=== PATIENT | male | born 1945 | race Caucasian/White ===

== ENCOUNTER 2017-02-10 06:49 | Inpatient (IN) | payer MEDICARE, OTHER ==
[~2017-02-10 06:49] MED LIST: BAYER CHEWABLE81 MG PO; GLUCOPHAGE1000 MG PO; LANTUS INSULIN10 ML SC; LIPITOR10 MG PO; LISINOPRIL10 MG PO; LYRICA50 MG PO; PLAVIX75 MG PO
[2017-02-10 07:56] LABS: BASOPHILS 0.1 % (0-2); EOSINOPHILS 0.1 % (0-7); HEMATOCRIT 36.6 % (42.0-54.0); HEMOGLOBIN 12.3 g/dL (13.5-17.5); IMMATURE GRANULOCYTES 0.3 % (0-5); LYMPHOCYTES 8.7 % (15-50); MCH 30.1 pg (26.0-34.0); MCHC 33.6 g/dL (31.0-37.0); MCV 89.7 fL (80.0-100.0); MEAN PLATELET VOLUME 9.3 fL (7.4-10.4); MONOCYTES 4.3 % (2-11); NEUTROPHILS 86.5 % (40-80); PLATELET COUNT 388 10x3/uL (130-400); RBC 4.08 10x6/uL (4.20-6.10); WBC 14.8 10x3/uL (4.8-10.8)
[2017-02-10 08:03] LABS: ALBUMIN 3.4 g/dL (3.4-5.0); ANION GAP 13.5 mmol/L (8-16); BILIRUBIN - TOTAL 0.19 mg/dL (0.2-1.3); CALCIUM 9.5 mg/dL (8.5-10.1); CARBON DIOXIDE 26.9 mmol/L (21.0-32.0); CREATININE - SERUM 2.1 mg/dL (0.6-1.3); POTASSIUM - SERUM 5.4 mmol/L (3.5-5.1); PROTEIN - SERUM 7.8 g/dL (6.4-8.2)
[2017-02-10] MEDS ORDERED: BUMEX 1 MG TAB1 MG PO (10:25)
[2017-02-10] MEDS ORDERED: NEURONTIN 300300 MG PO (10:26)
[2017-02-10] MEDS ORDERED: CAPOTEN12.5 MG PO (10:27)
[2017-02-10] MEDS ORDERED: COZAAR25 MG PO (10:27)
[2017-02-10] MEDS ORDERED: COLACE100 MG PO (10:28)
[2017-02-10 10:34] LABS: APTT 25.7 SECONDS (22.8-39.4)
[2017-02-10] MEDS ORDERED: NOVOLOG100 U/M1 SC (10:34)
[2017-02-10 10:35] VITALS: BP 152/66; BMI 34.5
[2017-02-10 10:39] LABS: INR 1.03 (0.85-1.17); PROTIME 13.3 SECONDS (11.6-15.0)
--- NOTE | 2017-02-10 10:53 | NUR ---
PT AOX4 RESP EVEN AND NONLABORED PT DENIES NEEDS AT THIS TIME IV TO LEFT HAND PATENT AND INTACT AT THIS TIME SRX2 BED AT LOWEST SETTING CALL LIGHT WITHIN REACH WILL CONTINUE TO MONITOR
--- NOTE | 2017-02-10 12:28 | NUR ---
ANGLIN INSERTED USING STERILE TECHNIQUE
[2017-02-10 13:18] LABS: COLOR YELLOW (YELLOW)
[2017-02-10 13:19] LABS: APPEARANCE HAZY (CLEAR); BILIRUBIN NEGATIVE (NEGATIVE); GLUCOSE 1000 mg/dL (NEGATIVE); KETONE NEGATIVE (NEGATIVE); NITRITE NEGATIVE (NEGATIVE); PROTEIN 1+ mg/dL (NEGATIVE); RED CELLS - URINE 0-5 /hpf (0-5); UROBILINOGEN NORMAL (NORMAL)
[2017-02-10 13:21] LABS: BACTERIA FEW /hpf (NONE SEEN); EPITHELIAL CELLS RARE /hpf (0-5)
[2017-02-10 15:34] VITALS: BP 152/80
--- NOTE | 2017-02-10 17:19 | NUR ---
RESPIRATORY THERAPY CONSULT PER DR. MUNROE. SPO2 92% HR 101 BREATH SOUND CLEAR/DIMINISHED. INSTRUCTED PATIENT REGARDING THE INCENTIVE SPIROMETRY IN WHICH PATIENT ACHEIVED 1000ML X10. ADVICED PATIENT THAT AFTER SURGERY HE WOULD NEED TO DO EVERY FEW HOUR X10.
[2017-02-10 20:00] VITALS: BP 125/57
--- NOTE | 2017-02-10 20:00 | NUR ---
PT AWAKE, AOX4. FAMILY AT BEDSIDE. DENIES ANY NEEDS AT THIS TIME. HAND FRAME SURGICAL ELASTIC KNITTER IN USE FOR PAIN CONTROL. CALL LIGHT IN REACH.
--- NOTE | 2017-02-10 21:38 | NUR ---
REC'D LYING IN BED. ALERT AND OREINTED X4. REPORTED PAIN 5/10. HAS ELECTROMEDICAL EQUIPMENT TECHNICIAN. INSTRUCTED HIM ON THE USE. DENIED NEEDS AT THIS TIME. IS NPO FOR PROCEDURE IN THE AM. IS AT BEDSIDE. INSTRUCTED TO CALL IF NEEDED ANYTHING. BED LOW LOCKED, CALL LIGHT IN REACH.
[2017-02-11] VITALS (14 sets, daily range): BP systolic 125–177; BP diastolic 57–81
--- NOTE | 2017-02-11 05:08 | NUR ---
IV TO LEFT HAND WAS BLEEDING, PUT A J-LOOP ON IV STILL PATENT AND FLUSHED HAD BLOOD RETURN. INSTRUMENT AND ELECTRICAL TECHNICIAN TUBING WAS HOOKED UP WRONG. HOOKED UP THE RIGHT WAY.
[2017-02-11 05:15] LABS: HEMATOCRIT 35.8 % (42.0-54.0); HEMOGLOBIN 11.7 g/dL (13.5-17.5); MCH 30.1 pg (26.0-34.0); MCHC 32.7 g/dL (31.0-37.0); MEAN PLATELET VOLUME 9.2 fL (7.4-10.4); RBC 3.89 10x6/uL (4.20-6.10); RDW 13.5 % (11.5-14.5)
[2017-02-11 05:37] LABS: WBC 19.1 10x3/uL (4.8-10.8)
[2017-02-11 05:57] LABS: ALBUMIN 2.9 g/dL (3.4-5.0); ANION GAP 15.9 mmol/L (8-16); BILIRUBIN - DIRECT 0.15 mg/dL (0.00-0.30); BILIRUBIN - INDIRECT 0.41 mg/dL (0.00-1.00); BILIRUBIN - TOTAL 0.56 mg/dL (0.2-1.3); CALCIUM 8.1 mg/dL (8.5-10.1); CARBON DIOXIDE 22.6 mmol/L (21.0-32.0); CREATININE - SERUM 1.9 mg/dL (0.6-1.3); MAGNESIUM - SERUM 1.7 mg/dL (1.8-2.4); POTASSIUM - SERUM 5.5 mmol/L (3.5-5.1); PROTEIN - SERUM 7.2 g/dL (6.4-8.2)
--- NOTE | 2017-02-11 07:30 | NUR ---
PT IS IN SURGERY.
--- NOTE | 2017-02-11 09:20 | NUR ---
ANESTHESIA ADVISES THE PATIENT WAS 94% O2 SAT PRE OPERATIVE
--- NOTE | 2017-02-11 09:32 | NUR ---
DR BAUTISTA ADVISED OF THE BP AND ORDERED HYDRALIZINE
--- NOTE | 2017-02-11 12:05 | NUR ---
PT WAS RECEIVED FROM RECOVERY. HE IS AWAKE AND ALERT. VSS. PT IS 94 % ON 4 LITERS O2 VIA NC. HE HAS 3 SMALL LAPAROSCOPIC INCISIONS NOTED WITH STERI STRIPS. CLEAN AND DRY. SCD'S INITIATED. IV LEFT HAND PATENT .
--- NOTE | 2017-02-11 12:09 | NUR ---
PT REQUEST TO SIT UP ON SIDE OF BED. HE HAS TOLERATED THIS WELL. HIS O2 WAS REDUCED TO 2 LITERS VIA NC. AM MEDS GIVEN. HE WAS ALSO GIVEN NORCO FOR PAIN. SCD'S OFF WHILE SITTING UP.
--- NOTE | 2017-02-11 12:19 | NUR ---
PT IS SITTING UP ON SIDE OF BED. HIS BS IS 144.
--- NOTE | 2017-02-11 15:00 | NUR ---
PT IS SITTING UP ON SIDE OF BED. HE OFFERS NO COMPLAINTS. BED IS LOW, SIDE RAILS UP X 2 AND CALL LIGHT IN REACH.
--- NOTE | 2017-02-11 17:20 | NUR ---
PT IS SITTING UP ON SIDE OF BED. HE OFFERS NO COMPLAINTS. HE WOULD LIKE HIS CATHETER OUT THOUGH. BS 188. GIVEN HUMULIN R 8 UNITS R THIGH
--- NOTE | 2017-02-11 18:38 | NUR ---
PT REQUESTED PAIN MED. PAIN IS A 7. NORCO GIVEN.
--- NOTE | 2017-02-11 18:41 | NUR ---
RECEIVED BENTYL FROM PHARMACY. GIVEN TO PT.
--- NOTE | 2017-02-11 19:58 | NUR ---
RECIEVED SITTING UP ON THE SIDE OF THE BED AND MANY FAMILY AT BEDSIDE. PLEASANT AND COOPERATIVE. ALERT AND ORIENTED X4. PLEASANT AND COOPERATIVE. AT BEDSIDE. STATED ABD. PAIN MUCH BETTER.
[2017-02-12] VITALS: BP 152/65
[2017-02-12 00:17] VITALS: BP 155/65
[2017-02-12 04:13] VITALS: BP 146/58
[2017-02-12 06:34] LABS: BASOPHILS 0.1 % (0-2); EOSINOPHILS 0.1 % (0-7); HEMATOCRIT 34.1 % (42.0-54.0); HEMOGLOBIN 11.1 g/dL (13.5-17.5); IMMATURE GRANULOCYTES 0.4 % (0-5); MCH 29.6 pg (26.0-34.0); MCHC 32.6 g/dL (31.0-37.0); MCV 90.9 fL (80.0-100.0); MEAN PLATELET VOLUME 9.2 fL (7.4-10.4); MONOCYTES 8.3 % (2-11); NEUTROPHILS 83.1 % (40-80); PLATELET COUNT 349 10x3/uL (130-400); RBC 3.75 10x6/uL (4.20-6.10); RDW 13.5 % (11.5-14.5); WBC 17.9 10x3/uL (4.8-10.8)
[2017-02-12 06:58] LABS: ANION GAP 15.9 mmol/L (8-16); CALCIUM 8.7 mg/dL (8.5-10.1); CARBON DIOXIDE 19.9 mmol/L (21.0-32.0); CREATININE - SERUM 1.8 mg/dL (0.6-1.3); MAGNESIUM - SERUM 1.9 mg/dL (1.8-2.4); POTASSIUM - SERUM 4.8 mmol/L (3.5-5.1)
[2017-02-12 08:00] VITALS: BP 159/63
[2017-02-12] MEDS ORDERED: HYDROCODON-ACE1 EAC7 PO (08:25)
[2017-02-12] MEDS ORDERED: LEVAQUIN500 MG PO (08:25)
--- NOTE | 2017-02-12 10:37 | NUR ---
CM REASSESSMENT NOTE: PATIENT IS DISCHARGING HOME TODAY. PATIENT STATED HE HAD NO NEEDS AND REFUSED HOME HEALTH. WILL BE DRIVING HIM HOME.
--- NOTE | 2017-02-12 10:45 | NUR ---
IV D/C'D FOR DISCHARGE, BLEED CONTROL, BANDAGE APPLIED.
--- NOTE | 2017-02-12 11:00 | NUR ---
ANGLIN CATHETER D/C'D AT THIS TIME, PT TOLERATED WITH MINIMAL DISCOMFORT.
--- NOTE | 2017-02-12 14:02 | NUR ---
DISCHARGE INSTRUCTIONS GIVEN TO PT, VERBALIZED UNDERSTANDING AND SIGNED.
--- NOTE | 2017-02-12 14:20 | NUR ---
PT DISCHARGED FROM FLOOR WITH FAMILY VIA WHEELCHAIR, TRANSPORTED BY HOSPITAL STAFF. PERSONAL BELONGINGS WITH PT.
== END 2017-02-12 14:26 | disposition home or self-care (01) | DRG 418 ==
LOC: OBSVTIME → D.OPS 06:49 → D.ER 06:49 → D.MS 09:37 → D.ER 09:37 → OBSVTIME 09:37 → EDSTATUS 02-11 11:30 → D.MS 02-11 13:20
PROVIDERS: Emergency Medicine; ADMIT Surgery
PROC: 0FT44ZZ Resection of Gallbladder, Percutaneous Endoscopic Approach (ICD-10-PCS; principal; 2017-02-11 08:00)
DX: K81.0 Acute cholecystitis (principal); N17.9 Acute kidney failure, unspecified; E11.9 Type 2 diabetes mellitus without complications; Z79.4 Long term (current) use of insulin; I10 Essential (primary) hypertension; I73.9 Peripheral vascular disease, unspecified; E87.5 Hyperkalemia

== ENCOUNTER → 2017-06-03 06:14 | Outpatient (CLI) | payer MEDICARE, OTHER ==
[~2017-06-03] VITALS: Ht 170.2 cm; Wt 98.6 kg
--- NOTE | ~2017-06-03 | HEMODYNAMI ---
PATIENT:BESSIE MITCHELL BUBBA MEDICAL RECORD: [id number] : 45 LOCATION:[facility] ADMISSION DATE: 06/03/17 Generatedon:06/03/201711:14 Patient name: BESSIE MITCHELL Patient #: [id number] SSN: : 1945 Date of study: 06/03/2017 Page: Of Hemodynamic Procedure Report Patient Data Patient Demographics Procedure consent was obtained First Name: BESSIE Gender: Male Last Name: STEPHEN : 1945 [facility] Initial: BUBBA Age: 71 year(s) Patient #: [id number] Race: Unknown Additional ID: [id number] Contact details [address]: [address] [place] [address] State: [place] City: [place] Zip code: [address] Past Medical History Allergies Allergen Reaction Date Comments Reported Other allergy 06/03/2017 glipizide Admission Admission Data Admission Date: 06/03/2017 Admission Time: 6:14 Admit Source: Other Lab Results Lab Result Date: 06/03/2017 Lab Result Time: 0:00 Biochemistry Name Units Result Min Max BUN mg/dl 34 --(----)-* 7 18 Creatinine mg/dl 2.5 --(----)-* 0.6 1.3 CBC Name Units Result Min Max Hemoglobin g/dl 12.2 *-(----)-- 13.5 17.5 Procedure Procedure Types Cath Procedure Diagnostic Procedure [facility] w/Coronaries PCI Procedure Coronary Stent Coronary Stent Initial Miscellaneous Procedures Moderate Sedation up to 15 minutes Procedure Description Procedure Date Procedure Date: 06/03/2017 Procedure Start Time: 10:46 Procedure End Time: 11:14 Procedure Staff Name Function Ruben Graves MD Performing Physician Willow Falcon RT Monitor Julio Bland RT Scrub Freddy Pham RN Nurse Procedure Data Cath Procedure Fluoroscopy Diagnostic fluoroscopy Total fluoroscopy Time: 7.6 time: 7.6 min min Diagnostic fluoroscopy Total fluoroscopy dose: 938 dose: 938 mGy mGy Contrast Material Contrast Material Type Amount (ml) Isovue 300 86 Entry Location Entry Primary Successful Side Size Upsize Upsize Entry Closure Succes sful Closure Location (Fr) 1 (Fr) 2 (Fr) Remarks Device Remarks Femoral Right 5 Fr 6 Fr Exoseal artery Short Estimated blood loss: 10 ml Diagnostic catheters Device Type Used For End Catheter Placement MULTIPACK JL 4.0 5Fr Procedure catheter MULTIPACK 3DRC 5Fr Procedure catheter Procedure Complications No complications Procedure Medications Medication Administration Route Dosage 0.9% NaCl I.V. 100 ml/hr Oxygen NC 2 l/min Heparin Flush Bag added to field 2 bags (1000units/500ml NS) Lidocaine 2% added to field 20 Versed I.V. 1 mg Fentanyl I.V. 50 mcg Benadryl I.V. 50 mg Versed I.V. 0.5 mg Heparin Bolus I.V. 9900 units Fentanyl I.V. 50 mcg Versed I.V. 0.5 mg Plavix P.O. 600 mg Hemodynamics Rest Pre Cath Intra NCS Post Cath Vital Signs Time Heart Resp SPO2 etCO2 NIBP (mmHg) Rhythm Pain Sedation Rate (ipm) (%) (mmHg) Status Level (bpm) 10:40:35 69 20 99 0 149/88(118) NSR 0 (11) 10(A) , No pain 10:45:18 70 13 86 0 126/69(96) NSR 0 (11) 10(A) , No pain 10:49:52 71 15 95 0 140/79(114) NSR 0 (11) 10(A) , No pain 10:54:33 67 15 83 0.7 130/65(109) NSR 0 (11) 9(A) , No pain 10:59:05 71 14 95 1.5 133/74(111) NSR 0 (11) 9(A) , No pain 11:03:43 71 18 96 19.7 129/63(103) NSR 0 (11) 10(A) , No pain 11:08:24 74 13 91 9.8 118/60(93) NSR 0 (11) 10(A) , No pain 11:13:29 73 18 96 14.4 125/69(108) NSR 0 (11) 10(A) , No pain Medications Time Medication Route Dose Verified Delivered Reason Notes Effectiveness by by 10:39:04 0.9% NaCl I.V. 100 Freddy Freddy Per physician ml/hr Vero Pham RN RN 10:39:13 Oxygen NC 2 Freddy Freddy Per physician l/min Vero Pham RN RN 10:39:25 Heparin Flush added 2 Freddy Freddy used for Bag to bags Vero Pham procedure (1000units/500ml RN RN NS) 10:39:37 Lidocaine 2% added 20ml Freddy Freddy for local to vial Lornagi Pham anesthetic RN RN 10:45:26 Versed I.V. 1 mg Freddy Freddy for sedation Vero Pham RN RN 10:45:35 Fentanyl I.V. 50 Freddy Freddy for sedation mcg Vero Pham RN RN 10:45:47 Benadryl I.V. 50 mg Freddy Freddy Per physician Vero Pham RN RN 10:48:48 Versed I.V. 0.5 Freddy Freddy for sedation mg Vero Pham RN RN 10:58:14 Heparin Bolus I.V. 9,900 Freddy Freddy for units Vero Pham anticoagulation RN RN 11:02:02 Fentanyl I.V. 50 Freddy Freddy for sedation mcg Vero Pham RN RN 11:03:44 Versed I.V. 0.5 Freddy Freddy for sedation mg Vero Pham RN RN 11:12:19 Plavix P.O. 600 Freddy Freddy for mg Vero Pham antiplatelet RN RN therapy Procedure Log Time Note 10:10:03 Freddy Pham RN sent for patient. Start room use. 10:25:42 Informed consent obtained and on chart 10:25:45 Admit Source: Other 10:26:02 Diagnostic Cath status Elective 10:26:09 Time tracking: Regular hours 10:26:13 Plan of Care:Hemodynamics will remain stable., Cardiac rhythm will remain stable., Comfort level will be maintained., Respiratory function will remain adequate., Patient/ family verbilizes understanding of procedure., Procedure tolerated without complication., Recovers from procedure without complications.. 10:26:18 Patient received from Pre/Post Procedure Room to CCL 1 Alert and oriented. Tansferred to table in Supine position. 10:26:22 Warm blankets applied, and roxana hugger turned on for patient comfort. 10:26:23 Correct patient and procedure confirmed by team. 10:26:23 ECG and BP/O2 sat monitors applied to patient. 10:26:48 H&P Date Dictated: 05/28/2017 Within 30 days and on chart., H&P Addendum completed by physician on day of procedure. (MUST COMPLETE FOR ALL OUTPATIENTS). 10:26:49 Pre-procedure instructions explained to patient. 10:26:49 Pre-op teaching completed and patient verbalized understanding. 10:26:53 Family in waiting room. 10:26:58 Patient NPO since Midnight. 10:27:18 Patient allergic to Other allergyglipizide 10:27:20 Is the patient allergic to Iodine/contrast media? No. 10:37:52 Is patient on blood thinner?No 10:37:54 Patient diabetic? Yes. 10:37:56 If diabetic: On Metformin? No 10:38:00 Snore? Yes 10:38:01 Sleep apnea? No 10:38:08 Dentures? Yes in tight 10:38:22 IV patent on arrival in left forearm with 0.9% NaCl at [facility]. 10:39:04 0.9% NaCl 100 ml/hr I.V. was administered by Freddy Pham RN; Per physician; 10:39:13 Oxygen 2 l/min NC was administered by Freddy Pham RN; Per physician; 10:39:25 Heparin Flush Bag (1000units/500ml NS) 2 bags added to field was administered by Freddy Pham RN; used for procedure; 10:39:37 Lidocaine 2% 20ml vial added to field was administered by Freddy Pham RN; for local anesthetic; 10:39:45 Vital chart was started 10:43:15 Lab Result : BUN 34 mg/dl 10:43:15 Lab Result : Hemoglobin 12.2 g/dl 10:43:15 Lab Result : Creatinine 2.5 mg/dl 10:43:35 Right groin area was prepped with chlora-prep and draped in sterile fashion 10:43:36 Alarms reviewed by R. N. 10:43:36 Sharps counted by scrub and verified by R.N. 10:43:37 Physician paged 10:43:38 Physician arrived 10:43:39 --------ALL STOP TIME OUT------ 10:43:40 Final Timeout: patient, procedure, and site verified with staff and physician. All members of the team are in agreement. 10:43:42 Right groin site verified by team. 10:43:46 Physical assessment completed. ASA score P 2 - A patient with mild systemic disease as per Ruben Graves MD. 10:43:50 Sedation plan: IV Moderate Sedation Medication:Versed, Fentanyl 10:43:54 Use device set Femoral Dx 10:43:55 ACIST Syringe (61171) opened to sterile field. 10:43:56 Bag Decanter (2002S) opened to sterile field. 10:43:56 Medline Cath Pack ([id number]) opened to sterile field. 10:43:57 SHEATH 5FR [place] (FAP292) opened to sterile field. 10:43:57 DIAGNOSTIC WIRE .035 260cm J wire (224684) opened to sterile field. 10:43:59 ACIST Hand Control (97278) opened to sterile field. 10:43:59 ACIST Manifold (44850) opened to sterile field. 10:43:59 DIAGNOSTIC Multipack 5Fr catheter set (CZ2101) opened to sterile field. 10:44:00 Tegaderm 4 x 4 (1626W) opened to sterile field. 10:44:00 PERCUTANEOUS ENTRY 19GA needle opened to sterile field. 10:45:19 Zero performed for pressure channel P1 10:45:26 Versed 1 mg I.V. was administered by Freddy Pham RN; for sedation; 10:45:35 Fentanyl 50 mcg I.V. was administered by Freddy Pham RN; for sedation; 10:45:47 Benadryl 50 mg I.V. was administered by Freddy Pham RN; Per physician; 10:46:35 Procedure started. 10:46:35 Full Disclosure recording started 10:46:53 Local anesthetic to right femoral artery with Lidocaine 2% by Ruben Graves MD.INITIAL ACCESS ONLY 10:47:56 A 5 Fr sheath was inserted into the Right Femoral artery 10:48:42 A MULTIPACK JL 4.0 5Fr catheter was advanced over the wire and used for Procedure. 10:48:48 Versed 0.5 mg I.V. was administered by Freddy Pham RN; for sedation; 10:49:42 LCA angiography performed. 10:51:50 Catheter removed. 10:52:04 A MULTIPACK 3DRC 5Fr catheter was advanced over the wire and used for Procedure. 10:52:15 RCA angiography performed. 10:52:43 Catheter removed. 10:54:47 INFLATOR Merit BasixCompak (WE6212) opened to sterile field. 10:54:48 TUBING High Pressure Extension Tubing (Graves) ([id number]) opened to sterile field. 10:54:48 SHEATH 6FR [place] (ICR971) opened to sterile field. 10:55:02 Proceeding to intervention. 10:55:26 BMW 300cm [place] 2 J wire ([id number]) opened to sterile field. 10:55:40 Procedure type changed to Cath procedure, Diagnostic procedure, LHC, LHC w/Coronaries, PCI procedure, Coronary Stent, Coronary Stent Initial, Miscellaneous Procedures, Moderate Sedation up to 15 minutes 10:55:51 Sheath upsized to a 6 Fr Short. 10:56:29 GUIDE 6FR XBLAD 3.5 SH catheter ([id number]) opened to sterile field. 10:56:45 6 Fr xblad 3.5 guide catheter was inserted over the wire 10:56:51 bmw wire advanced. 10:58:14 Heparin Bolus 9,900 units I.V. was administered by Freddy Pham RN; for anticoagulation; 11:02:02 Fentanyl 50 mcg I.V. was administered by Freddy Pham RN; for sedation; 11:03:44 Versed 0.5 mg I.V. was administered by Freddy Pham RN; for sedation; 11:07:39 Inflation Number: 1 A INTEGRITY OTW 3.0 X 12 stent ([id number]) was prepped and advanced across the Prox CX. The stent was deployed at 14 TABATHA for 0:18 (min:sec). 11:07:56 EXOSEAL 6Fr (EX600) opened to sterile field. 11:08:04 Wire removed. 11:08:05 Guide catheter removed. 11:08:15 Sheath removed intact; hemostasis achieved with Exoseal to the Right Femoral artery. 11:08:19 Procedure ended.(Physican Out) 11:08:36 Fluoroscopy time 07.60 minutes. 11:08:42 Fluoroscopy dose: 938 mGy 11:08:42 Flurop Dose total: 938 11:08:50 Contrast amount:Isovue 300 86ml. 11:09:03 Sharps counted by scrub and verified by R.N. 11:09:04 Insertion/operative site no bleeding no hematoma. 11:09:07 Post-op/insertion site Right Femoral artery dressed using a 4 x 4 and Tegaderm. 11:09:08 Post Procedure Pulses reassessed and unchanged 11:09:14 Post-procedure physical assessment completed. ASA score P 2 - A patient with mild systemic disease as per Ruben Graves MD. 11:09:18 Estimated blood loss: 10 ml 11:09:21 Post procedure instruction explained to patient.Patient verbalizes understanding. 11:12:03 Procedure and supply charges have been captured, reviewed, submitted and are correct. 11:12:19 Plavix 600 mg P.O. was administered by Freddy Pham RN; for antiplatelet therapy; 11:14:07 Procedure Complication : No complications 11:14:10 Vital chart was stopped 11:14:10 See physician's report for complete and final results. 11:14:12 Report given to Pre/Post Procedure Room. 11:14:16 Patient transfered to Pre/Post Procedure Room with Stretcher. 11:14:18 Procedure ended. 11:14:18 Full Disclosure recording stopped 11:14:25 ACC-PCI Only Patient was given prescriptions, or instructed by Ruben Graves MD to start/continue the following medications upon discharge: Plavix 11:14:28 End room use (Document Last) Intervention Summary Intervention Notes Time ActionType Lesion and Equipment Action# Pressure Duration Attributes Used 11:07:39 Place stent Prox CX INTEGRITY 1 14 00:18 OTW 3.0 X 12 stent ([id number]) Device Usage Item Name Manufacture Quantity Catalog Hospital Part Current Minimal Lot# / Number Charge Number Stock Stock Serial# Code ACIST Acist 1 59837 879307 577135 173963 20 Syringe Medical (10820) Systems Inc Bag Decanter Microtek 1 384164 87246 962521 5 () Medical Inc. Medline Cath Cardinal 1 [id number] 823845 32519 602741 5 Wabi Sabi Ecofashionconcept Health ([id number]) SHEATH 5FR Terumo 1 RUF383 404232 916870 089931 40 [place] (ITJ798) DIAGNOSTIC St Abhijeet 1 013854 930069 017149 178872 30 WIRE .035 260cm J wire (378766) ACIST Hand Acist 1 49033 246275 547522 009903 5 Control Medical (81433) Systems Inc ACIST Acist 1 34406 648755 685236 971286 5 Manifold Medical (57399) Systems Inc DIAGNOSTIC Cardinal 1 KC4784 255049 71655 911695 30 Multipack Health 5Fr catheter set (VE0105) Tegaderm 4 x 3M 1 1626W 922038 825067 619518 5 4 (1626W) PERCUTANEOUS Cook Medical 1 T87930 326734 648677 5 ENTRY 19GA needle MULTIPACK JL Cardinal 1 963787 5 4.0 5Fr Health catheter MULTIPACK Cardinal 1 679689 5 3DRC 5Fr Health catheter INFLATOR Merit 1 NC2639 081331 727467 875606 15 Merit Medical BasixCompak (JT7295) TUBING High Merit 1 [id number] 185359 40694 405613 10 Pressure Medical Extension Tubing (Graves) (EV5644A) SHEATH 6FR Terumo 1 TPA285 055284 124109 524585 40 [place] (JMS897) BMW 300cm Joyner 1 [id number] 097358 688881 483511 5 [place] 2 Vascular J wire (0717719F) GUIDE 6FR Cardinal 1 31888211 945078 324072 476105 3 XBLAD 3.5 SH Health catheter (10997997) INTEGRITY Medtronic 1 [id number] 005121 063756 7 [id number] OTW 3.0 X 12 stent ([id number]) EXOSEAL 6Fr Cardinal 1 EX600 405595 581972 351525 10 (EX600) Health Signature Audit [place] Stage Time Signature Unsigned Intra-Procedure 06/03/2017 Willow Falcon 11:14:41 AM RT(R) Signatures Monitor : Willow Falcon Signature : RT Date : Time : [facility] [address] [facility], [facility]
[~2017-06-03 06:14] MED LIST changes: +BUMEX 1 MG TAB1 MG PO; +CAPOTEN12.5 MG PO; +COLACE100 MG PO; +COZAAR25 MG PO; +HYDROCODON-ACE1 EAC7 PO; +LEVAQUIN500 MG PO; +NEURONTIN 300300 MG PO; +NOVOLOG100 U/M1 SC
[2017-06-03 07:19] VITALS: BP 132/66; Ht 170.2 cm; Wt 98.6 kg
[2017-06-03 07:22] LABS: BASOPHILS 0.3 % (0-2); EOSINOPHILS 3.2 % (0-7); HEMATOCRIT 36.6 % (42.0-54.0); HEMOGLOBIN 12.2 g/dL (13.5-17.5); IMMATURE GRANULOCYTES 0.3 % (0-5); LYMPHOCYTES 21.7 % (15-50); MCH 29.8 pg (26.0-34.0); MCHC 33.3 g/dL (31.0-37.0); MCV 89.5 fL (80.0-100.0); MEAN PLATELET VOLUME 9.3 fL (7.4-10.4); MONOCYTES 6.3 % (2-11); NEUTROPHILS 68.2 % (40-80); PLATELET COUNT 339 10x3/uL (130-400); RBC 4.09 10x6/uL (4.20-6.10); WBC 10.4 10x3/uL (4.8-10.8)
[2017-06-03 07:27] LABS: ANION GAP 14.2 mmol/L (8-16); CARBON DIOXIDE 24.5 mmol/L (21.0-32.0); CREATININE - SERUM 2.5 mg/dL (0.6-1.3); POTASSIUM - SERUM 4.7 mmol/L (3.5-5.1)
== END | disposition home or self-care (01) ==
LOC: D.CATH 06:14
PROVIDERS: Internal Medicine Cardiovascular Disease
DX: I20.9 Angina pectoris, unspecified (principal); I10 Essential (primary) hypertension; I73.9 Peripheral vascular disease, unspecified; E11.9 Type 2 diabetes mellitus without complications; Z01.812 Encounter for preprocedural laboratory examination

== ENCOUNTER → 2017-09-22 09:10 | Outpatient (CLI) | payer MEDICARE, OTHER ==
[2017-06-03 07:19] VITALS: BMI 34.0
== END | disposition home or self-care (01) ==
LOC: D.RT 09:10
DX: R06.02 Shortness of breath (principal)

== ENCOUNTER → 2018-03-25 08:37 | Outpatient (CLI) | payer MEDICARE, OTHER ==
[2017-06-03 07:19] VITALS: BMI 34.0
[2018-03-28 13:15] LABS: ANA REFLEX - DIRECT Negative (Negative)
== END | disposition home or self-care (01) ==
LOC: D.RT 08:37
PROVIDERS: Internal Medicine Pulmonary Disease
DX: R94.2 Abnormal results of pulmonary function studies (principal)

== ENCOUNTER → 2018-07-08 08:04 | Outpatient (CLI) | payer MEDICARE, OTHER ==
[2017-06-03 07:19] VITALS: BMI 34.0
== END | disposition home or self-care (01) ==
LOC: D.MRI 07-07 08:30
PROVIDERS: ATTEND Internal Medicine Cardiovascular Disease
DX: M54.5 Low back pain (principal); M25.552 Pain in left hip; M25.551 Pain in right hip

== ENCOUNTER → 2018-08-08 11:22 | Outpatient (CLI) | payer MEDICARE, OTHER ==
[2017-06-03 07:19] VITALS: BMI 34.0
== END | disposition home or self-care (01) ==
LOC: D.US 11:22
PROVIDERS: ATTEND Internal Medicine Cardiovascular Disease
DX: R42 Dizziness and giddiness (principal); I25.10 Atherosclerotic heart disease of native coronary artery without angina pectoris

== ENCOUNTER → 2018-11-10 12:57 | Outpatient (CLI) | payer MEDICARE, OTHER ==
[2017-06-03 07:19] VITALS: BMI 34.0
[2018-11-10 13:52] LABS: THYROID STIMULATING HORMONE 1.98 uIU/mL (0.36-3.74)
== END | disposition home or self-care (01) ==
LOC: D.LAB 12:57
PROVIDERS: ATTEND Internal Medicine Gastroenterology
DX: K59.00 Constipation, unspecified (principal); Z80.9 Family history of malignant neoplasm, unspecified; K64.8 Other hemorrhoids; Z86.010 Personal history of colon polyps; R14.2 Eructation

== ENCOUNTER 2019-01-10 11:11 | Emergency (ER) | payer MEDICARE, OTHER ==
[~2019-01-10] VITALS: Ht 170.2 cm; Wt 94.5 kg
[~2019-01-10 11:11] MED LIST changes: -LANTUS INSULIN10 ML SC; +LANTUS SOL100 UNIT/1 SC
[2019-01-10 11:14] VITALS: Ht 170.2 cm; Wt 94.5 kg
[2019-01-10 11:56] LABS: BASOPHILS 0.2 % (0-2); EOSINOPHILS 1.8 % (0-7); HEMOGLOBIN 10.2 g/dL (13.5-17.5); IMMATURE GRANULOCYTES 0.3 % (0-5); LYMPHOCYTES 16.5 % (15-50); MCH 29.8 pg (26.0-34.0); MCHC 32.9 g/dL (31.0-37.0); MCV 90.6 fL (80.0-100.0); MEAN PLATELET VOLUME 9.1 fL (7.4-10.4); MONOCYTES 4.5 % (2-11); NEUTROPHILS 76.7 % (40-80); PLATELET COUNT 303 10x3/uL (130-400); RBC 3.42 10x6/uL (4.20-6.10); RDW 13.5 % (11.5-14.5); WBC 9.6 10x3/uL (4.8-10.8)
[2019-01-10 12:01] LABS: ALBUMIN 2.9 g/dL (3.4-5.0); ALKALINE PHOSPHATASE 100 U/L (46-116); ALT (SGPT) 18 U/L (10-68); CALC OSMOLALITY 293 mosm/kg (275-300); CALCIUM 8.6 mg/dL (8.5-10.1); CARBON DIOXIDE 26.6 mmol/L (21.0-32.0); CHLORIDE - SERUM 106 mmol/L (98-107); CREATININE - SERUM 2.3 mg/dL (0.6-1.3); GLUCOSE 134 mg/dL (74-106); POTASSIUM - SERUM 4.6 mmol/L (3.5-5.1); PROTEIN - SERUM 6.4 g/dL (6.4-8.2); SODIUM 141 mmol/L (136-145); UREA NITROGEN 44 mg/dL (7-18); eGFR NON AFRICAN AMERICAN 30 mL/min (90-120)
[2019-01-10 12:04] LABS: AMYLASE - SERUM 48 U/L (25-115); LIPASE 95 U/L (73-393); TROPONIN-I < 0.017 ng/mL (0.000-0.060)
[2019-01-10 14:19] LABS: APPEARANCE CLEAR (CLEAR); BILIRUBIN NEGATIVE (NEGATIVE); COLOR YELLOW (YELLOW); GLUCOSE 250 mg/dL (NEGATIVE); KETONE NEGATIVE (NEGATIVE); NITRITE NEGATIVE (NEGATIVE); PROTEIN 1+ mg/dL (NEGATIVE); SPECIFIC GRAVITY 1.015 (1.005-1.020); UROBILINOGEN NORMAL (NORMAL)
[2019-01-10 14:20] LABS: BACTERIA NONE SEEN /hpf (NEGATIVE); EPITHELIAL CELLS NSEEN /hpf (0-5); RED CELLS - URINE NONE SEEN /hpf (0-5); WHITE CELLS - URINE NSEEN /hpf (NEGATIVE)
[2019-01-10] MEDS ORDERED: OMEPRAZOLE40 MG PO (15:15)
[2019-01-10 15:36] VITALS: BP 152/65
[2019-01-19] MEDS ORDERED: SODIUM BICARBO325 MG PO (07:39)
== END 2019-01-10 15:38 | disposition home or self-care (01) ==
LOC: D.ER 11:11
PROVIDERS: Family Medicine
DX: K21.9 Gastro-esophageal reflux disease without esophagitis (principal); R42 Dizziness and giddiness; E11.22 Type 2 diabetes mellitus with diabetic chronic kidney disease; I12.9 Hypertensive chronic kidney disease with stage 1 through stage 4 chronic kidney disease, or unspecified chronic kidney disease; N18.9 Chronic kidney disease, unspecified

== ENCOUNTER 2019-01-19 06:45 | Outpatient (CLI) | payer MEDICARE, OTHER ==
[~2019-01-19] VITALS: Ht 170.2 cm; Wt 95.5 kg
--- NOTE | ~2019-01-19 | HEMODYNAMI ---
PATIENT:BESSIE MITCHELL BUBBA MEDICAL RECORD: [id number] : 45 LOCATION:D.CAT ADMISSION DATE: 01/19/19 Generatedon:01/19/201910:28 Patient name: BESSIE MITCHELL Patient #: [id number] SSN: [id number] : 1945 Date of study: 01/19/2019 Page: Of Hemodynamic Procedure Report Patient Data Patient Demographics Procedure consent was obtained First Name: BESSIE Gender: Male Last Name: STEPHEN : 1945 [facility] Initial: BUBBA Age: 73 year(s) Patient #: [id number] Race: SSN: [id number] Additional ID: [id number] Contact details [address]: [address] [place] [address] State: [place] City: [place] Zip code: [address] Past Medical History Allergies Allergen Reaction Date Comments Reported Other allergy 06/03/2017 glipizide Other allergy 01/19/2019 glipizide Admission Admission Data Admission Date: 01/19/2019 Admission Time: 6:45 Arrival Date: 01/19/2019 Arrival Time: 0:00 Insurance Payor: Medicare [facility] #: [id number] Height (in.): 66.93 BSA: 2.06 (m2) Height (cm.): 170 BMI: 32.87 (kg/m2) Weight (lbs.): 209.44 Weight (kg.): 95 Lab Results Lab Result Date: 01/19/2019 Lab Result Time: 1:00 Biochemistry Name Units Result Min Max BUN mg/dl 28 --(----)-* 7 18 Creatinine mg/dl 2.2 --(----)-* 0.6 1.3 eGFR ml/min 31 *-(----)-- 90 120 NONAFRICAN CBC Name Units Result Min Max Hemoglobin g/dl 10.7 *-(----)-- 13.5 17.5 Procedure Procedure Types Cath Procedure Diagnostic Procedure [facility] Coronaries only Sedation Charges Moderate Sedation up to 30 minutes PCI Procedure PTCA PTCA Initial Procedure Description Procedure Date Procedure Date: 01/19/2019 Procedure Start Time: 9:41 Procedure End Time: 10:24 Procedure Staff Name Function Ruben Graves MD Performing Physician Prema Echevarria RT Monitor Maeve Abdalla RT Monitor Theo Charles RN Nurse Leticia Monae RT Scrub Procedure Data Cath Procedure Fluoroscopy Diagnostic fluoroscopy Total fluoroscopy Time: 0 time: 0 min min Diagnostic fluoroscopy Total fluoroscopy dose: dose: 1095 mGy 1095 mGy Contrast Material Contrast Material Type Amount (ml) Isovue 300 72 Entry Location Entry Primary Successful Side Size Upsize Upsize Entry Closure Succes sful Closure Location (Fr) 1 (Fr) 2 (Fr) Remarks Device Remarks Radial Right 6 Fr artery Short Femoral Right 5 Fr 6 Fr Exoseal artery Short Estimated blood loss: 10 ml Diagnostic catheters Device Type Used For End Catheter Placement DIAGNOSTIC Jimmy 110cm Procedure 5Fr catheter ([id number]) MULTIPACK JL 4.0 5Fr Left Coronary catheter Angiography MULTIPACK 3DRC 5Fr Right Coronary catheter Angiography Procedure Complications No complications Procedure Medications Medication Administration Route Dosage Oxygen etCO2 Nasal cannula 2 l/min Lidocaine 2% added to field 20 Heparin Flush Bag added to field 2 bags (1000units/500ml NS) 0.9% NaCl I.V. 100 ml/hr Radial Cocktail I.A. 1 syringe (Verapamil 2mg/Nitro 400mcg/Heparin 1500units) Versed I.V. 1 mg Fentanyl I.V. 50 mcg Versed I.V. 1 mg Fentanyl I.V. 50 mcg Versed I.V. 0.5 mg Fentanyl I.V. 25 mcg Heparin Bolus I.V. 9500 units Plavix P.O. 600 mg Hemodynamics Rest BSA: 2.06 (m2) HGB: 10.7 (g/dl) O2 Consumption: Estimated: 229.69 (ml/min) O2 Co nsumption indexed: Estimated:111.5 (ml/min/m) Heart Rate: 60 (bpm) Snapshots Pre Cath Intra NCS Post Cath Vital Signs Time Heart Resp SPO2 etCO2 NIBP (mmHg) Rhythm Pain Sedation Rate (ipm) (%) (mmHg) Status Level (bpm) 9:22:58 68 13 95 0 168/87(139) NSR 0 (11) 10(A) , No pain 9:27:23 68 12 95 0 182/92(148) NSR 0 (11) 10(A) , No pain 9:31:49 52 16 94 0 167/90(142) NSR 0 (11) 10(A) , No pain 9:36:15 69 15 97 0 162/88(140) NSR 0 (11) 10(A) , No pain 9:40:41 73 15 99 0 172/84(136) NSR 0 (11) 9(A) , No pain 9:45:02 76 15 99 2.9 148/74(108) NSR 0 (11) 9(A) , No pain 9:49:18 76 10 99 22.4 144/77(111) NSR 0 (11) 9(A) , No pain 9:53:38 70 11 99 26.2 133/70(115) NSR 0 (11) 9(A) , No pain 9:57:52 75 12 99 32.9 132/72(102) NSR 0 (11) 9(A) , No pain 10:02:08 73 13 99 29.2 144/73(116) NSR 0 (11) 9(A) , No pain 10:06:28 73 13 99 34.4 125/68(106) NSR 0 (11) 9(A) , No pain 10:10:44 71 13 99 36.7 136/67(101) NSR 0 (11) 9(A) , No pain 10:15:55 76 14 99 18.7 168/90(132) NSR 0 (11) 10(A) , No pain 10:20:13 77 12 96 24.7 159/81(111) NSR 0 (11) 10(A) , No pain 10:24:33 73 14 95 0 153/81(105) NSR 0 (11) 10(A) , No pain Medications Time Medication Route Dose Verified Delivered Reason Not es Effectiveness by by 9:23:36 Oxygen etCO2 2 l/min Ruben Buffie used for Nasal Star Charles RN procedure cannula 9:24:11 Lidocaine 2% added 20ml Ruben Ruben for local to vial Star Graves MD anesthetic field 9:24:18 Heparin Flush added 2 bags Ruben Ruben used for Bag to Star Graves MD procedure (1000units/500ml field NS) 9:24:27 0.9% NaCl I.V. 100 Ruben Buffie Per physician ml/hr Star Charles RN 9:36:45 Versed I.V. 1 mg Ruben Buffie for sedation Star Charles RN 9:36:53 Fentanyl I.V. 50 mcg Ruben Buffie for sedation Star Charles RN 9:42:46 Radial Cocktail I.A. 1 Ruben Ruben for (Verapamil syringe Star Graves MD vasodilation 2mg/Nitro 400mcg/Heparin 1500units) 9:42:51 Versed I.V. 1 mg Ruben Buffie for sedation Star Charles RN 9:42:55 Fentanyl I.V. 50 mcg Ruben Buffie for sedation Star Charles RN 9:46:50 Versed I.V. 0.5 mg Ruben Buffie for sedation Star Charles RN 9:46:56 Fentanyl I.V. 25 mcg Ruben Buffie for sedation Star Charles RN 10:00:04 Heparin Bolus I.V. 9500 Ruben Buffie for wit h units Star Charles RN anticoagulation dr graves 10:17:19 Plavix P.O. 600 mg Ruben Buffie for Star Charles RN antiplatelet therapy Procedure Log Time Note 8:47:49 Informed consent obtained and on chart 8:48:57 Procedure Status Elective Heart Cath (OP). 8:56:44 Patient Height : 66.93 inches 8:56:50 Patient Weight : 209.44 lbs 8:56:57 Arrival Date: 01/19/2019 12:00:00 AM 8:57:24 Insurance Payor : Medicare 8:58:03 ACCPatient has been prescribed/administered the following anti-anginal medication within the last 2 weeks: Long-Acting Nitrates 9:04:11 Lab Result : Hemoglobin 10.7 g/dl 9:06:15 Theo Charles RN sent for patient. Start room use. 9:07:35 Lab Result : BUN 28 mg/dl 9:07:35 Lab Result : eGFR NONAFRICAN 31 ml/min 9:07:35 Lab Result : Hemoglobin 10.7 g/dl 9:07:35 Lab Result : Creatinine 2.2 mg/dl 9:09:02 H&P Date Dictated: 01/19/2019 H&P Addendum completed by physician on da y of procedure. (MUST COMPLETE FOR ALL OUTPATIENTS), New H&P dictated by physician.. 9:09:05 Pre-procedure instructions explained to patient. 9:09:06 Pre-op teaching completed and patient verbalized understanding. 9:09:10 Family in waiting room. 9:09:13 Patient NPO since Midnight. 9:09:53 Patient allergic to Other allergyglipizide 9:10:24 Time tracking: Regular hours (M-F 7:00 - 5:00) 9:10:31 Plan of Care:Hemodynamics will remain stable., Cardiac rhythm will remain stable., Comfort level will be maintained., Respiratory function will remain adequate., Patient/ family verbilizes understanding of procedure., Procedure tolerated without complication., Recovers from procedure without complications.. 9:12:15 Patient received from Pre/Post Procedure Room to CCL 1 Alert and oriented. Tansferred to table in Supine position. 9:15:26 Warm blankets applied, and roxana hugger turned on for patient comfort. 9:15:27 Correct patient and procedure confirmed by team. 9:15:29 ECG and BP/O2 sat monitors applied to patient. 9:15:33 Full Disclosure recording started 9:21:35 Is the patient allergic to Iodine/contrast media? No. 9::41 Vital chart was started 9:21:54 Baseline sample Acquired. 9:22:05 Rhythm: sinus bradycardia 9:22:16 - 9:22:29 Is patient on blood thinner?No 9:22:33 Patient diabetic? Yes. 9:22:35 If diabetic: On Metformin? No 9:22:38 ----Pre-sedation anethsthesia assessment.---- 9:22:43 Previous problem with sedation/anesthesia? No ? 9:22:45 Snore? Yes 9:22:48 Sleep apnea? No 9:22:50 Deviated septum? No 9:22:52 Opens mouth fully? Yes 9:22:53 Sticks out tongue? Yes 9:22:56 Airway obstruction? No ? 9:23:00 Dentures? No ? 9:23:05 Pre procedure: right dorsailis pedis pulse Doppler 9:23:29 Modified Kenneth's test Ulnar < 7 seconds 9:23:36 Oxygen 2 l/min etCO2 Nasal cannula was administered by Theo Charles RN; used for procedure; Verbal order read back and verified. 9:23:36 Patient pain scale 0/10 ?. 9:23:42 IV patent on arrival in left forearm with 0.9% NaCl at [facility]. 9:23:55 Lab results completed and on chart. 9:24:01 Right Radial & Right Groin area was prepped with chlora-prep and draped in sterile fashion 9:24:07 Alarms reviewed by R. N. 9:24:07 Sharps counted by scrub and verified by R.N. 9:24:11 Lidocaine 2% 20ml vial added to field was administered by Ruben Graves MD ; for local anesthetic; Verbal order read back and verified. 9:24:14 Use device set Radial Dx or PCI 9:24:16 ACIST Syringe (94786) opened to sterile field. 9:24:16 Medline Cath Pack ([id number]) opened to sterile field. 9:24:17 Bag Decanter () opened to sterile field. 9:24:18 Heparin Flush Bag (1000units/500ml NS) 2 bags added to field was administered by Ruben Graves MD; used for procedure; Verbal order read back and verified. 9:24:18 ACIST Hand Control (15902) opened to sterile field. 9:24:19 ACIST Manifold (91452) opened to sterile field. 9:24:20 Tegaderm 4 x 4 (1626W) opened to sterile field. 9:24:21 MBrace Wrist Support ([id number]) opened to sterile field. 9:24:27 0.9% NaCl 100 ml/hr I.V. was administered by Theo Charles RN; Per physician; Verbal order read back and verified. 9:24:28 NEEDLE Cook 21G 4cm Radial (E79224) opened to sterile field. 9:24:30 EMERALD Guide Wire (041-923) opened to sterile field. 9:24:33 SHEATH 6FR RAIN (2530402) opened to sterile field. 9:31:49 Zero performed for pressure channel P1 9:34:19 ACC Patient presents with Stable Angina CCS Anginal Class 3--Marked limitation of physical activity, angina occurs with ordinary activity.. 9:34:37 Physician arrived 9:34:38 --------ALL STOP TIME OUT------ 9:34:39 Final Timeout: patient, procedure, and site verified with staff and physician. All members of the team are in agreement. 9:34:43 Right Radial & Right Groin site verified by team. 9:34:50 Fire Safety Assessment: A--An alcohol-based skin anteseptic being used preoperatively., C--Open oxygen or nitrous oxide is being used., D--An ESU, laser, or fiber-optic light is being used. 9:35:11 Physical assessment completed. ASA score P 3 - A patient with severe systemic disease as per Ruben Graves MD. 9:35:17 3b) 30-44 Moderately reduced kidney function. 9:35:23 Maximum allowable contrast dose (3.7 X eGFR X 0.75)86 ml. 9:35:30 Sedation plan: IV Moderate Sedation Medication:Versed, Fentanyl 9:36:45 Versed 1 mg I.V. was administered by Theo Charles RN; for sedation; Verbal order read back and verified. 9:36:53 Fentanyl 50 mcg I.V. was administered by Theo Charles RN; for sedation; Verbal order read back and verified. 9:40:32 Procedure started. 9:41:07 Local anesthetic to right radial artery with Lidocaine 2% by Ruben Graves MD.INITIAL ACCESS ONLY 9:42:20 A 6 Fr Short sheath was inserted into the Right Radial artery 9:42:31 A DIAGNOSTIC Jimmy 110cm 5Fr catheter (273500) was advanced over the wire and used for Procedure. 9:42:46 Radial Cocktail (Verapamil 2mg/Nitro 400mcg/Heparin 1500units) 1 syring e I.A. was administered by Ruben Graves MD; for vasodilation; Verbal order read back and verified. 9:42:51 Versed 1 mg I.V. was administered by Theo Charles RN; for sedation; Verbal order read back and verified. 9:42:55 Fentanyl 50 mcg I.V. was administered by Theo Charles RN; for sedation; Verbal order read back and verified. 9:44:45 GLIDE WIRE ANGLE 260cm (PL7890) opened to sterile field. 9:45:19 GLIDEWIRE USED TO ADVANCE CATHETHER. 9:46:17 UNABLE TO ADVANCE AROUNT RT SUBCLAVIAN, PROCEED TO RIGHT GROIN APPROACH . 9:46:27 Local anesthetic to right femoral artery with Lidocaine 2% by Ruebn chavez MD.ADDITIONAL ACCESS 9:46:39 Use device set Multipack Set 9:46:46 DIAGNOSTIC Multipack 5Fr catheter set ([id number]) opened to sterile field. 9:46:50 Versed 0.5 mg I.V. was administered by Theo Charles RN; for sedation; Verbal order read back and verified. 9:46:56 Fentanyl 25 mcg I.V. was administered by Theo Charles RN; for sedation; Verbal order read back and verified. 9:46:58 SHEATH 5FR [place] (OYL468) opened to sterile field. 9:49:37 A 5 Fr sheath was inserted into the Right Femoral artery 9:50:33 A MULTIPACK JL 4.0 5Fr catheter was advanced over the wire and used for Left Coronary Angiography. 9:51:26 LCA angiography performed. 9:52:11 Catheter exchanged over wire. 9:52:50 A MULTIPACK 3DRC 5Fr catheter was advanced over the wire and used for Right Coronary Angiography. 9:53:04 RCA angiography performed. 9:53:41 ACCDominant side:Right 9:55:03 Catheter exchanged over wire. 9:56:08 SHEATH 6FR [place] (GOW474) opened to sterile field. 9:56:09 INFLATOR Merit BasixCompak (CT0133) opened to sterile field. 9:56:10 BMW 300cm Straight [place] 2 wire (7708934) opened to sterile field. 9:56:10 TUBING High Pressure Extension Tubing (Graves) (FB6039A) opened to sterile field. 9:56:35 GUIDE 6FR XBLAD 3.5 catheter ([id number]) opened to sterile field. 9:57:00 Sheath upsized to a 6 Fr Short. 9:57:04 Proceeding to intervention. 9:57:18 6 Fr XBLAD3.5 guide catheter was inserted over the wire 9:57:33 Pre PCI Site: Samish pCirc has 80% stenosis. 10:00:04 Heparin Bolus 9500 units I.V. was administered by Theo Charles RN; for anticoagulation; with dr graves Verbal order read back and verified. 10:01:16 OVJ762 wire advanced. 10:05:48 Wire advanced across lesion. 10:09:02 Inflate balloon Inflation number: 1 A EMERGE OTW 3.0 x 12 balloon ([id number]) was prepped and advanced across the Prox CX , then inflated to 12 TABATHA for 0:10 (min:sec) . 10:10:44 Inflation number: 2 The EMERGE OTW 3.0 x 12 balloon ([id number]) was reinflated across the Prox CX , to 14 TABATHA for 0:10 (min:sec) . 10:11:34 Balloon removed over the wire. 10:11:35 Wire removed. 10:11:36 Guide catheter removed. 10:11:50 Post PCI Site: Samish pCirc has 0% stenosis. 10:12:09 EXOSEAL 6Fr (EX600) opened to sterile field. 10:13:02 Contrast amount:Isovue 300 72ml. 10:13:18 Sheath removed intact; hemostasis achieved with Exoseal to the Right Femoral artery. 10:13:27 ZEPHYR REGULAR TR BAND (717264) opened to sterile field. 10:13:33 Procedure ended.(Physican Out) 10:13:49 Fluoroscopy time 00.00 minutes. 10:14:00 Flurop Dose total: 1095 10:14:00 Fluoroscopy dose: 1095 mGy 10:14:10 Dose Area Product 07011 mGy/cm. 10:14:18 Maximum allowable dose exceeded? No. 10:14:22 Sharps counted by scrub and verified by R.N. 10:15:14 Insertion/operative site no bleeding no hematoma. 10:15:19 Post-op/insertion site Right Femoral artery dressed using a 4 x 4 and Tegaderm. 10:15:24 Post Procedure Pulses reassessed and unchanged 10:16:10 Post-procedure physical assessment completed. ASA score P 3 - A patient with severe systemic disease as per Ruben Graves MD. 10:16:14 Post procedure rhythm: unchanged. 10:16:19 Estimated blood loss: 10 ml 10:16:24 Post procedure instruction explained to patient.Patient verbalizes understanding. 10:16:26 Patient needs reinforcement of post procedure teaching. 10:17:19 Plavix 600 mg P.O. was administered by Theo Charles RN; for antiplatelet therapy; Verbal order read back and verified. 10:17:47 Procedure type changed to Cath procedure, Diagnostic procedure, LHC, Coronaries only, Sedation Charges, Moderate Sedation up to 30 minutes, PCI procedure, PTCA, PTCA Initial 10:18:03 [facility] Findings: MVD- PCI performed (see procedure note) 10:21:21 ACT drawn and resulted at 377 seconds. (normal therapeutic range 180-24 0 seconds). 10:22:37 [place] band inflated with 8cc of air. 10:24:05 Procedure and supply charges have been captured, reviewed, submitted an d are correct. 10:24:16 Procedure Complication : No complications 10:24:29 Vital chart was stopped 10:24:34 Operative report dictated upon procedure completion. 10:24:35 See physician's report for complete and final results. 10:24:37 Report given to Pre/Post Procedure Room. 10:24:41 Patient transfered to Pre/Post Procedure Room with Stretcher. 10:24:45 Procedure ended. 10:24:45 Full Disclosure recording stopped 10:24:56 ACC-PCI Only Patient was given prescriptions, or instructed by Ruben Graves MD to start/continue the following medications upon discharge: Plavix 10:24:59 End room use (Document Last) Intervention Summary Intervention Notes Time ActionType Lesion and Equipment Action# Pressure Duration Attributes Used 10:09:02 Inflate Prox CX EMERGE OTW 1 12 00:10 balloon 3.0 x 12 balloon ([id number]) 10:10:44 Reinflate Prox CX EMERGE OTW 2 14 00:10 balloon 3.0 x 12 balloon ([id number]) Device Usage Item Name Manufacture Quantity Catalog Number [facility] Lot# / Charge Number Stock Stock Serial# Code ACIST Acist 1 76146 839866 237118 721698 20 Syringe Medical (08864) Systems Inc Medline Cath Medline 1 [id number] 161247 20958 282614 5 Pack ([id number]) Bag Decanter Microtek 1 378399 25957 125198 5 (2002S) Medical Inc. ACIST Hand Acist 1 76165 102209 563335 671189 5 Control Medical (49196) Systems Inc ACIST Acist 1 16203 757209 723787 266273 5 Manifold Medical (23639) Systems Inc Tegaderm 4 x 3M 1 1626W 996961 644786 491742 5 4 (1626W) MBrace Wrist Advanced 1 140-0250-00 508572 71843 600524 5 Support Vascular (485722675) Dynamics NEEDLE Cook Wallula Medical 1 I17502 345131 149054 323854 5 21G 4cm Radial (X65534) EMERALD Cardinal 1 502-455 791748 270466 655725 5 Guide Wire Health (502-455) SHEATH 6FR Cardinal 1 4636919 192618 1151567 972913 5 [facility] (0740764) DIAGNOSTIC Terumo 1 40-5023 752040 355283 594369 5 Jimmy 110cm 5Fr catheter (988712) GLIDE WIRE Terumo 1 BH3930 690289 447782 332561 5 ANGLE 260cm (WY1232) DIAGNOSTIC Cardinal 1 GN6969 656997 79748 310449 30 Multipack Health 5Fr catheter set (IC0245) SHEATH 5FR Terumo 1 QOC634 877093 601073 700614 5 [place] (KDN552) MULTIPACK JL Cardinal 1 803729 5 4.0 5Fr Health catheter MULTIPACK Cardinal 1 902860 5 3DRC 5Fr Health catheter SHEATH 6FR Terumo 1 KBJ771 109249 432229 857744 40 [place] (BDY036) INFLATOR Merit 1 VG3540 459375 075121 009673 15 [facility] Medical BasixCompak (VA4019) BMW 300cm Joyner 1 4552108 887415 934884 694642 5 Straight Vascular [place] 2 wire (1637757) TUBING High Merit 1 [id number] 647423 83670 706239 10 Pressure Medical Extension Tubing (Graves) (WS7166U) GUIDE 6FR Cardinal 1 34120126 944640 135142 910505 10 XBLAD 3.5 Health catheter (47836458) EMERGE OTW Downing 1 [id number] 467406 034298 152543 5 [id number] 3.0 x 12 Scientific balloon ([id number]) EXOSEAL 6Fr Cardinal 1 EX600 083600 281714 629593 10 (EX600) Health ZEPHYR Cardinal 1 605297 827311 3892793 858933 5 REGULAR TR Health BAND (668627) Signature Audit [place] Stage Time Signature Unsigned Intra-Procedure 01/19/2019 Maeve 10:27:03 AM Rm RT(R) (CV) Intra-Procedure 01/19/2019 Theo Charles RN 10:27:52 AM Intra-Procedure 01/19/2019 Ruben Graves MD 10:28:42 AM [facility] [address] [id number]
[~2019-01-19 06:45] MED LIST changes: +OMEPRAZOLE40 MG PO
[2019-01-19] MEDS ORDERED: NEURONTIN 300300 MG PO (07:37)
[2019-01-19] MEDS ORDERED: LINZESS72 MCG PO (07:38)
[2019-01-19] MEDS ORDERED: LIPITOR20 MG PO (07:38)
[2019-01-19] MEDS ORDERED: ISOSORBIDE MONO30 M1 PO (07:39)
[2019-01-19] MEDS ORDERED: ROPINIROLE HCL1 MG PO (07:40)
[2019-01-19] MEDS ORDERED: LANTUS SOL100 UNIT/1 SC (07:41)
[2019-01-19 07:45] VITALS: BP 166/77; Ht 170.2 cm; Wt 95.5 kg
[2019-01-19 08:01] LABS: BASOPHILS 0.5 % (0-2); EOSINOPHILS 2.9 % (0-7); HEMATOCRIT 32.5 % (42.0-54.0); HEMOGLOBIN 10.7 g/dL (13.5-17.5); IMMATURE GRANULOCYTES 0.3 % (0-5); LYMPHOCYTES 23.6 % (15-50); MCH 29.9 pg (26.0-34.0); MCHC 32.9 g/dL (31.0-37.0); MCV 90.8 fL (80.0-100.0); MEAN PLATELET VOLUME 9.4 fL (7.4-10.4); MONOCYTES 5.9 % (2-11); NEUTROPHILS 66.8 % (40-80); PLATELET COUNT 289 10x3/uL (130-400); RBC 3.58 10x6/uL (4.20-6.10); RDW 13.5 % (11.5-14.5); WBC 9.2 10x3/uL (4.8-10.8)
[2019-01-19 08:53] LABS: ANION GAP 13.1 mmol/L (8-16); CALCIUM 8.3 mg/dL (8.5-10.1); CARBON DIOXIDE 25.7 mmol/L (21.0-32.0); CHOL - HDL RATIO 3.3 ratio (2.3-4.9); CREATININE - SERUM 2.2 mg/dL (0.6-1.3); POTASSIUM - SERUM 4.8 mmol/L (3.5-5.1)
--- NOTE | 2019-01-19 09:01 | NUR ---
NS STARTED TO PIV PRIOR TO PROCEDURE DUE TO PT'S CR 2.2.
--- NOTE | 2019-01-19 10:55 | NUR ---
PT NAUSEOUS UPON ARRIVAL TO CATH HOLDING UNIT, C/O REFLUX AFTER TAKING PLAVIX WHICH HE STATES HAS CAUSED THE NAUSEA. HOB TILTED IN [place]SE [place], PT REQUESTS SIPS OF DIET SPRITE AND THIS SERVED. ZOFRAN 4MG IV PER ORDERS HAS BEEN ADMINISTERED. PT DENIES ANY C/O CHEST DISCOMFORT. DRESSING IS CDI TO RIGTH GROIN, AREA IS SOFT AND NONTENDER. PEDAL PULSES ARE PALPABLE. Z BAND CDI TO RIGHT WRSIT, WRIST IMMOBILIZER IN PLACE. FINGERS WARM, CAP REFILL IS BRISK. HOB IS FLAT, BED IS LOCKED AND LOW POSITION. AT BEDSIDE, RESP WITH EASE ON O2 AT 2LPM VIA NC. CALL LIGHT IN REACH.
--- NOTE | 2019-01-19 11:12 | NUR ---
PT RESTING WITH EYES CLOSED, DRESSINGS CDI RIGH GROIN, AREA IS SOFT WITH NO HEMATOMA NOTED. PEDAL PULSES PALPABLE. Z BAND CDI RIGHT WRIST WITH NO BLEEDING NOTED, RADAIL PULSE PALPABLE. VSS, RESP WTIH EASE ON O2 AT 2LPM.
--- NOTE | 2019-01-19 11:41 | NUR ---
KSENIA SIPS OF DIET SPRITE, DENIES ANY C/O. DRESSINGS CDI TO RIGHT GROIN AND Z BAND TO RIGHT WRIST. SINUS DARLIN AT 54, RESP WITH EASE ON O2 AT 2LPM VIA NC.
--- NOTE | 2019-01-19 12:02 | NUR ---
DRESSING IS CDI TO RIGHT GROIN AND Z BAND IS CDI TO RIGHT WRIST, NO BLEEDING OR HEMATOMA NOTED. PULSES PALPABLE. PT DENIES ANY C/O. VSS.
--- NOTE | 2019-01-19 13:44 | NUR ---
HOB ELEVATED 30 DEGREES, SANDWICH AND PO FLUIDS SERVED. PT IS ALERT AND DENIES ANY C/O PAIN OR NAUSEA. RESP WITH EASE ON ROOM AIR. DRESSING CDI TO RIGHT GROIN, PEDAL PULSES PALPABLE. 3 CC OF AIR WEANED FROM Z BAND WITH NO BLEEDING NOTED. FINGERS WARM AND PULSES PALPABLE.
--- NOTE | 2019-01-19 13:50 | NUR ---
3 CC OF AIR WEANED FROM Z BAND WITH NO BLEEDING NOTED. FINGERS WARM AND CAP REFILL IS BRISK. DRESSING CDI TO RIGHT GROIN. PEDAL PULSES PALPABLE.
[2019-01-19] MEDS ORDERED: PLAVIX75 MG PO (14:16)
--- NOTE | 2019-01-19 15:28 | NUR ---
1405 ALL REMAINING AIR WEANED FROM Z BAND WITH NO BLEEDING NOTED. FINGERS WARM AND RADIAL PULSE PALPABLE. PT IS ALERT AND DENIES ANY C/O. DC INSTRUCTIONS REVIEWED WITH PT AND WHO VERBALIZE UNDERSTANDING. PLAVIX PRESCRIPTION AND MEDCOUNSELOR SHEET TO PATIENT. PT AND VERBALIZE UNDERSTANDING OF PT STARTING THIS MEDICATION TOMORROW. 2X2 AND TEGADERM PLACED TO WRIST CATH SITE, WRIST IMMOBILIZER IN PLACE. DRESSING REMAINS CDI TO RIGHT GROIN. 1425 IV HAS BEEN DC'D WITH CATH INTACT AND NURSE ASSISTING PT WITH DRESSING FOR DISCHARGE. PT IS ALERT AND DENIES ANY C/O. 1445 PT HAS DRESSED FOR DC TO HOME. HAS AMBULATED IN ROOM, IS ALERT AND DENIES ANY C/O. DRESSINGS REMAIN CDI TO RIGHT GROIN AND RIGHT WRIST. PT ESCORTED TO PRIVATE AUTO VIA WC BY NURSE WITH HIS DRIVING HIM HOME. PT HAS ALL PERSONAL BELONGINGS AND DC INSTRUCTIONS AT TIME OF DISCHARGE.
== END 2019-01-19 14:45 | disposition home or self-care (01) ==
LOC: D.CATH 06:45
PROVIDERS: ATTEND Internal Medicine Cardiovascular Disease
DX: I25.110 Atherosclerotic heart disease of native coronary artery with unstable angina pectoris (principal); T82.855A Stenosis of coronary artery stent, initial encounter; Y83.9 Surgical procedure, unspecified as the cause of abnormal reaction of the patient, or of later complication, without mention of misadventure at the time of the procedure

== ENCOUNTER 2019-03-17 14:40 | Inpatient (IN) | payer MEDICARE, OTHER ==
[~2019-03-17] VITALS: Ht 152.4 cm; Wt 95.0 kg
[~2019-03-17 14:40] MED LIST changes: +ISOSORBIDE MONO30 M1 PO; +LINZESS72 MCG PO; +LIPITOR20 MG PO; +ROPINIROLE HCL1 MG PO
--- NOTE | 2019-03-17 15:16 | NUR ---
PT OUT OF ED AT THIS TIME FOR ORDERED CT SCAN
[2019-03-17 15:52] LABS: BASOPHILS 0.3 % (0-2); HEMATOCRIT 32.6 % (42.0-54.0); HEMOGLOBIN 10.8 g/dL (13.5-17.5); IMMATURE GRANULOCYTES 0.4 % (0-5); LYMPHOCYTES 9.2 % (15-50); MCHC 33.1 g/dL (31.0-37.0); MCV 90.6 fL (80.0-100.0); MEAN PLATELET VOLUME 9.1 fL (7.4-10.4); MONOCYTES 4.8 % (2-11); NEUTROPHILS 84.3 % (40-80); PLATELET COUNT 289 10x3/uL (130-400); RDW 13.5 % (11.5-14.5)
[2019-03-17 16:03] LABS: APTT 28.6 SECONDS (22.8-39.4); INR 1.13 (0.85-1.17)
[2019-03-17 16:13] LABS: CALC OSMOLALITY 291 mosm/kg (275-300); CALCIUM 8.8 mg/dL (8.5-10.1); CARBON DIOXIDE 24.2 mmol/L (21.0-32.0); CHLORIDE - SERUM 108 mmol/L (98-107); CREATININE - SERUM 2.3 mg/dL (0.6-1.3); POTASSIUM - SERUM 5.2 mmol/L (3.5-5.1); SODIUM 140 mmol/L (136-145); UREA NITROGEN 35 mg/dL (7-18); eGFR NON AFRICAN AMERICAN 30 mL/min (90-120)
[2019-03-17 16:18] LABS: GLUCOSE 195 mg/dL (74-106)
[2019-03-17 16:30] LABS: ALBUMIN 3.2 g/dL (3.4-5.0); ALKALINE PHOSPHATASE 104 U/L (46-116); ALT (SGPT) 31 U/L (10-68); AMYLASE - SERUM 62 U/L (25-115); BILIRUBIN - TOTAL 0.25 mg/dL (0.2-1.3); CKMB 0.5 U/L (0.0-3.6); CREATINE KINASE 59 UL (21-232); LIPASE 127 U/L (73-393); MAGNESIUM - SERUM 1.7 mg/dL (1.8-2.4); PROTEIN - SERUM 6.6 g/dL (6.4-8.2); TROPONIN-I < 0.017 ng/mL (0.000-0.060)
--- NOTE | 2019-03-17 16:43 | NUR ---
URINE TO LAB
[2019-03-17 17:00] VITALS: BP 158/65
[2019-03-17 17:30] LABS: APPEARANCE CLEAR (CLEAR); BILIRUBIN NEGATIVE (NEGATIVE); COLOR YELLOW (YELLOW); GLUCOSE 500 mg/dL (NEGATIVE); KETONE NEGATIVE (NEGATIVE); NITRITE NEGATIVE (NEGATIVE); PROTEIN 1+ mg/dL (NEGATIVE); UROBILINOGEN NORMAL (NORMAL)
[2019-03-17 17:31] LABS: BACTERIA FEW /hpf (NEGATIVE); EPITHELIAL CELLS 0-5 /hpf (0-5); RED CELLS - URINE 0-5 /hpf (0-5); WHITE CELLS - URINE 0-5 /hpf (NEGATIVE)
--- NOTE | 2019-03-17 17:50 | NUR ---
PT CHECKING HIS OWN GLUCOSE LEVEL AND VOICES CONCERNS TO THIS NURSE THAT HIS SUGAR IS "ALMOST OVER 300." TREATING PROVIDER IN ED NOTIFIED, NO FURTHER ORDERS RECEIVED.
--- NOTE | 2019-03-17 18:26 | NUR ---
BED 1210 ASSIGNED AT 1820, REPORT CALLED TO FERN AT 1826, INFORMED ASSIGNED BED WAS DIRTY. ED TO BE NOTIFIED WHEN ASSIGNED ROOM IS CLEAN AND READY FOR PT.
--- NOTE | 2019-03-17 19:06 | NUR ---
HAND OFF REPORT GIVEN TO OCHOA KELLY
--- NOTE | 2019-03-17 20:45 | NUR ---
RECEIVED FROM ER VIA ETHEL, A&O X4, PLACED ON TELERTRY-SR, IV-R.HAND, 2L 02, MEDS REVEIWED, HISTORY COMPLETE, SRX2, PROVIDE A SANDWICH AND DRINK, BED IS LOW, CALL LIGHT IN REACH, WILL CONTINUE PLAN OF CARE
[2019-03-17 22:30] LABS: CKMB 1.1 U/L (0.0-3.6); CREATINE KINASE 66 UL (21-232)
[2019-03-17 22:31] LABS: TROPONIN-I < 0.017 ng/mL (0.000-0.060)
--- NOTE | 2019-03-17 22:40 | NUR ---
BP-167/92 WILL CONTINUE TO MONITOR
[2019-03-18] VITALS (8 sets, daily range): BP systolic 128–171; BP diastolic 52–78; Ht 152.4 cm; Wt 95.0 kg
[2019-03-18 06:16] LABS: CKMB 0.9 U/L (0.0-3.6); CREATINE KINASE 56 UL (21-232); TROPONIN-I < 0.017 ng/mL (0.000-0.060)
[2019-03-18 10:55] LABS: CKMB 0.7 U/L (0.0-3.6); CREATINE KINASE 57 UL (21-232)
[2019-03-18 10:58] LABS: TROPONIN-I 0.017 ng/mL (0.000-0.060)
[2019-03-18 14:28] LABS: % SATURATION 28 % (15-55); IRON 74 ug/dl (35-150); TOTAL IRON BIND CAPACITY 263 ug/dl (260-445); UNSAT IRON BIND CAPACITY 189 ug/dl (150-375)
--- NOTE | 2019-03-18 15:05 | NUR ---
WENT TO GIVE PT SODIUM BICARB AND PT STATED THAT HE DOES NOT TAKE THAT ANYMORE. TOOK OFF HOME MEDICATIONS.
--- NOTE | 2019-03-18 15:09 | NUR ---
ENDOSCOPIC TECHNICIAN AT BEDSIDE, GETTING ORTHOSTATIC VITAL SIGNS AT THIS TIME. VITALS FOLLOWED. LAYING BP 156/71 HR 79, SITTING 135/59 HR 80, STANDING 136/52 HR 81. GAVE 400MG OF MAG FOR LOW MAG OF 1.7 WILL REPEAT DOSE IN 4HRS. PT DENIES ANY NEEDS AT THIS TIME. CALL LIGHT IN REACH, NAD NOTED, WILL CONTINUE TO MONITOR.
--- NOTE | 2019-03-18 16:22 | NUR ---
BLOOD SUGAR OF 257, 6UNIT OF INSULIN GIVEN PER S/S. PT DENIES ANY NEEDS AT THIS TIME. CALL LIGHT IN REACH, FAMILY AT BEDSIDE, NAD NOTED.
--- NOTE | 2019-03-18 19:30 | NUR ---
RECEIVED REPORT, WILL ASSUME CARE OF PT, DENIES ANY NEEDS AT THIS TIME, BED IS LOW, SRX2, CALL LIGHT IN REACH, WILL CONTINUE PLAN OF CARE
[2019-03-19] VITALS: BP 109/51
--- NOTE | 2019-03-19 02:06 | NUR ---
I have reviewed this patient and I concur with the Shift Assessment completed by the Licensed Practical Nurse today this shift.
[2019-03-19 07:36] VITALS: BP 163/66
--- NOTE | 2019-03-19 09:05 | NUR ---
AM MEDS GIVEN AT THIS TIME. PT A/O X4, RESP EVEN AND NONLABORED ON RA. RT HAND IV SL. PT DENIES ANY NEEDS AT THIS TIME, CALL LIGHT IN REACH, SPOUSE AT BEDSIDE, NAD NOTED,WILL CONTINUE TO MONITOR.
[2019-03-19 09:43] LABS: HEMATOCRIT 32.2 % (42.0-54.0); HEMOGLOBIN 10.7 g/dL (13.5-17.5); MCH 30.2 pg (26.0-34.0); MCHC 33.2 g/dL (31.0-37.0); MEAN PLATELET VOLUME 9.1 fL (7.4-10.4); PLATELET COUNT 312 10x3/uL (130-400); RBC 3.54 10x6/uL (4.20-6.10); RDW 13.6 % (11.5-14.5)
[2019-03-19 09:44] LABS: WBC 8.9 10x3/uL (4.8-10.8)
[2019-03-19 09:54] LABS: CALCIUM 8.6 mg/dL (8.5-10.1); CARBON DIOXIDE 22.6 mmol/L (21.0-32.0); CREATININE - SERUM 2.2 mg/dL (0.6-1.3); POTASSIUM - SERUM 4.6 mmol/L (3.5-5.1)
[2019-03-19 10:00] LABS: EOSINOPHILS 6 % (0-7); LYMPHOCYTES 23 % (15-50); MONOCYTES 4 % (2-11); NEUTROPHILS 67 % (40-80); PLATELET ESTIMATE NORMAL
--- NOTE | 2019-03-19 11:14 | NUR ---
BLOOD SUGAR OF 167, PT REFUSED TO RECEIVE 2UNITS PER S/S. PT RESTING COMFORTABLY IN BED, DENIES ANY NEEDS AT THIS TIME. [facility], NAD NOTED, WILL CONTINUE TO MONITOR.
[2019-03-19 11:31] VITALS: BP 114/69
[2019-03-19] MEDS ORDERED: SODIUM BICARBO325 MG PO (13:38)
[2019-03-19 15:05] VITALS: BP 141/60
--- NOTE | 2019-03-19 19:15 | NUR ---
RECEIVED REPORT, WILL ASSUME CARE OF PT, WATCHING TV, DENIES ANY NEEDS AT THIS TIME, BED IS LOW, SRX2, CALL LIGHT IN REACH, WILL CONTINUE PLAN OF CARE
[2019-03-19 20:04] VITALS: BP 155/65
[2019-03-20 00:01] VITALS: BP 116/49
--- NOTE | 2019-03-20 03:31 | NUR ---
I have reviewed this patient and I concur with the Shift Assessment completed by the Licensed Practical Nurse today this shift.
[2019-03-20 05:28] VITALS: BP 134/52
[2019-03-20 08:00] VITALS: BP 161/63
--- NOTE | 2019-03-20 11:09 | NUR ---
BLOOD SUGAR OF 191, 2UNITS GIVEN PER S/S. ALSO GAVE 50UNITS OF LANTUS. PT DENIES ANY NEEDS AT THIS TIME. CALL LIGHT IN REACH, NAD NOTED.
[2019-03-20 12:00] VITALS: BP 169/63
--- NOTE | 2019-03-20 13:53 | NUR ---
PT RESTING COMFORTABLY IN BED, DENIES ANY NEEDS AT THIS TIME. CALL LIGHT IN REACH, NAD NOTED, WILL CONTINUE TO MONITOR.
[2019-03-20 13:55] LABS: BASOPHILS 0.2 % (0-2); HEMATOCRIT 30.7 % (42.0-54.0); HEMOGLOBIN 10.3 g/dL (13.5-17.5); IMMATURE GRANULOCYTES 0.3 % (0-5); LYMPHOCYTES 21.8 % (15-50); MCH 30.2 pg (26.0-34.0); MCHC 33.6 g/dL (31.0-37.0); MEAN PLATELET VOLUME 8.8 fL (7.4-10.4); NEUTROPHILS 66.7 % (40-80); PLATELET COUNT 261 10x3/uL (130-400); RBC 3.41 10x6/uL (4.20-6.10); RDW 13.4 % (11.5-14.5); WBC 9.3 10x3/uL (4.8-10.8)
[2019-03-20 14:06] LABS: ANION GAP 13.2 mmol/L (8-16); CALCIUM 8.2 mg/dL (8.5-10.1); CARBON DIOXIDE 23.8 mmol/L (21.0-32.0); CREATININE - SERUM 2.3 mg/dL (0.6-1.3)
--- NOTE | 2019-03-20 15:46 | NUR ---
PROVIDED VERBAL AND WRITTEN DISCHARGE TEACHING TO PT WHO VERBALIZED UNDERSTANDING REGARDING TEACHING. D/C RT HAND IV WITH CATHETER TIP INTACT. PT LEFT UNIT VIA WHEELCHAIR, WITH ALL BELONGIGNS, ACCOMPANIED BY SPOUSE, NAD NOTED.
--- NOTE | 2019-03-20 16:57 | MORECARE ---
CASE MANAGEMENT DISCHARGE SUMMARY PATIENT: BESSIE MITCHELL BUBBA UNIT: [id number] ADM DATE: 03/18/19 AGE: 73 : 45 SEX: M ROOM/BED: D.4123 AUTHOR: BHANU,DOC PHYSICIAN: REFERRING PHYSICIAN: KELSEY SAUL MD DATE OF SERVICE: 03/20/19 Discharge Plan Patient Name: BESSIE MITCHELL Facility: [facility]:[place] : 1945 Planned Disposition: Home Anticipated Discharge Date: 03/20/19 Discharge Date: 03/20/2019 Expected LOS: 2 Initial Reviewer: [email or web address] Initial Review Date: 03/20/2019 Generated: 03/20/19 5:57 pm Comments DCP- Discharge Planning Updated by [email or web address]: Wes May on 03/20/19 3:[address] Patient Name: BESSIE MITCHELL Admission Status: ER Accout number: [id number] Admission Date: 03-18-2019 : 1945 Admission Diagnosis: Attending: KELSEY SAUL Current LOS: 2 Anticipated DC Date: 03-20-2019 Planned Disposition: Home Primary Insurance: MEDICARE A & B Discharge Planning Comments: CM MET WITH PT IN ROOM TO DISCUSS DISCHARGE PLANNING AND NEEDS. PT REPORTS LIVING AT HOME INDEPENDENTLY WITH SPOUSE. PT HAS CANE WITH NO MEDICAL EQUIPMENT PROVIDER PREFERENCE AND NO OUTSIDE SERVICES ASSISTING IN THE HOME. CM DISCUSSED AVAILABILITY OF HOME HEALTH, REHAB SERVICES AND MEDICAL EQUIPMENT. PT DENIES DISCHARGE NEEDS, REPORTS HIS WILL PICK HIM UP FOR DISCHARGE HOME. IMPORTANT MESSAGE FROM MEDICARE PROVIDED AND EXPLAINED. Bolt Labeler: Wes May DCPIA - Discharge Planning Initial Assessment Updated by [email or web address]: Wes May on 03/20/19 4:50 pm * Is the patient Alert and Oriented? Yes * How many steps to enter\exit or inside your home? * PCP DR. DSOUZA * Pharmacy [facility] * Preadmission Environment Home with Family * ADLs Independent * Equipment Cane * Other Equipment NO MEDICAL EQUIPMENT PROVIDER PREFERNCE * List name and contact numbers for known caregivers / representatives who currently or will assist patient after discharge: VICTORINA MITCHELL, SPOUSE, * Verbal permission to speak to the caregivers and representatives has been obtained from the patient. Yes * Community resources currently utilized None * Please name any agencies selected above. NONE * Additional services required to return to the preadmission environment? No * Can the patient safely return to the preadmission environment? Yes * Has this patient been hospitalized within the prior 30 days at any hospital? No Coverage Notice Reviewer: [id number] Thomas Ly Notice Issued Date-Time: 03/17/2019 18:45 Notice Type: Notice Delivered To: Patient Relationship to Patient: Agronomist Name: Delivery Method: HAND - Hand Delivered Belle Days: Prior Verbal Notification: Recipient Understood Notice: Recipient Signature: Med Rec Note Co-signed by Attending: Coverage Notice Comment: JAQUEZ delivered, explained, signed by the patient, and placed in his chart. Signed form also left with patient. Iris Ly RN , [facility] Reviewer: [id number] - Wes May Notice Issued Date-Time: 03/20/2019 15:30 Notice Type: IM Discharge Notice Notice Delivered To: Patient Relationship to Patient: Agronomist Name: Delivery Method: HAND - Hand Delivered Belle Days: Prior Verbal Notification: Recipient Understood Notice: Yes Recipient Signature: Yes Med Rec Note Co-signed by Attending: Coverage Notice Comment: Patient Name: BESSIE MITCHELL Page [id number] at 1657 All edits/amendments must be made on the electronic document DICTATION DATE: 03/20/191656 MANAGER VALUATION: ALEXEY 03/20/191656 RPT#: [id number] DC DATE:03/20/19 STATUS: DIS IN [id number] [place] [address] END OF REPORT
== END 2019-03-20 15:50 | disposition home or self-care (01) | DRG 312 ==
LOC: D.ER 14:40 → OBSVTIME 18:07 → D.M3 18:07 → D.M2 19:34
PROVIDERS: Emergency Medicine; Family Medicine; ADMIT Internal Medicine Nephrology; ATTEND Internal Medicine Nephrology
DX: R55 Syncope and collapse (principal); N17.9 Acute kidney failure, unspecified; E11.40 Type 2 diabetes mellitus with diabetic neuropathy, unspecified; E11.22 Type 2 diabetes mellitus with diabetic chronic kidney disease; E11.51 Type 2 diabetes mellitus with diabetic peripheral angiopathy without gangrene; I12.9 Hypertensive chronic kidney disease with stage 1 through stage 4 chronic kidney disease, or unspecified chronic kidney disease; K21.9 Gastro-esophageal reflux disease without esophagitis; N18.3 Chronic kidney disease, stage 3 (moderate); D63.1 Anemia in chronic kidney disease; I25.10 Atherosclerotic heart disease of native coronary artery without angina pectoris; E78.5 Hyperlipidemia, unspecified; E87.5 Hyperkalemia; E83.42 Hypomagnesemia; Z87.891 Personal history of nicotine dependence

== ENCOUNTER 2019-10-06 01:50 | Emergency (ER) | payer MEDICARE, OTHER ==
[~2019-10-06] VITALS: Ht 152.4 cm; Wt 90.7 kg
[~2019-10-06 01:50] MED LIST changes: +SODIUM BICARBO325 MG PO
[2019-10-06 01:55] VITALS: Ht 152.4 cm; Wt 90.7 kg
[2019-10-06 02:07] LABS: BASOPHILS 0.2 % (0-2); EOSINOPHILS 2.7 % (0-7); HEMATOCRIT 31.2 % (42.0-54.0); HEMOGLOBIN 10.2 g/dL (13.5-17.5); IMMATURE GRANULOCYTES 0.3 % (0-5); LYMPHOCYTES 13.7 % (15-50); MCH 30.6 pg (26.0-34.0); MCHC 32.7 g/dL (31.0-37.0); MCV 93.7 fL (80.0-100.0); MEAN PLATELET VOLUME 8.9 fL (7.4-10.4); NEUTROPHILS 79.1 % (40-80); PLATELET COUNT 281 10x3/uL (130-400); RBC 3.33 10x6/uL (4.20-6.10); WBC 13.9 10x3/uL (4.8-10.8)
[2019-10-06 02:13] LABS: CALC OSMOLALITY 287 mosm/kg (275-300); CALCIUM 8.5 mg/dL (8.5-10.1); CARBON DIOXIDE 24.8 mmol/L (21.0-32.0); CHLORIDE - SERUM 105 mmol/L (98-107); CREATININE - SERUM 2.5 mg/dL (0.6-1.3); GLUCOSE 207 mg/dL (74-106); POTASSIUM - SERUM 4.3 mmol/L (3.5-5.1); SODIUM 136 mmol/L (136-145); UREA NITROGEN 41 mg/dL (7-18); eGFR NON AFRICAN AMERICAN 27 mL/min (90-120)
[2019-10-06 02:28] LABS: ALBUMIN 3.4 g/dL (3.4-5.0); ALKALINE PHOSPHATASE 132 U/L (30-120); ALT (SGPT) 34 U/L (10-68); LIPASE 217 U/L (73-393); PRO BNP 617 pg/mL (0-125); PROTEIN - SERUM 7.1 g/dL (6.4-8.2); TROPONIN-I < 0.017 ng/mL (0.000-0.060)
[2019-10-06 02:32] LABS: BILIRUBIN NEGATIVE (NEGATIVE); GLUCOSE 250 mg/dL (NEGATIVE); KETONE NEGATIVE (NEGATIVE); NITRITE NEGATIVE (NEGATIVE); UROBILINOGEN NORMAL (NORMAL)
[2019-10-06] MEDS ORDERED: FLOMAX0.4 MG PO (03:13)
[2019-10-06] MEDS ORDERED: HYDROCODON-ACE1 EA10 PO (03:13)
== END 2019-10-06 03:28 | disposition home or self-care (01) ==
LOC: D.ER 01:50
PROVIDERS: Family Medicine
DX: N20.1 Calculus of ureter (principal); E11.40 Type 2 diabetes mellitus with diabetic neuropathy, unspecified; Z79.4 Long term (current) use of insulin; I10 Essential (primary) hypertension; K21.9 Gastro-esophageal reflux disease without esophagitis

== ENCOUNTER → 2020-01-02 09:11 | Outpatient (CLI) | payer MEDICARE, OTHER ==
[~2020-01-02 09:11] MED LIST changes: +FLOMAX0.4 MG PO; +HYDROCODON-ACE1 EA10 PO
== END | disposition home or self-care (01) ==
LOC: D.US 09:11
PROVIDERS: ATTEND Internal Medicine Cardiovascular Disease
DX: I70.219 Atherosclerosis of native arteries of extremities with intermittent claudication, unspecified extremity (principal)